=== PATIENT | female | born 2000 | race Caucasian/White ===

== ENCOUNTER 2024-11-02 02:39 | Emergency (ER) | payer BC, SELFPAY ==
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
[2024-11-02 02:47] VITALS: BP 115/78; BP 120/80; PULSE 74; PULSE 90; RESP 18; TEMP 36.8; O2SAT 100; O2SAT 99; BMI 25.8
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
--- NOTE | 2024-11-02 02:58 | PC.NURSE ---
Report to Yessica FELICIANO for continued care.
--- OUTSIDE RECORDS SUMMARY | 2024-11-02 03:40 | XMS_ITS | Clinical Summary ---
Author Organization [facility] Address [address] [place] [address] Care Team Providers Care Instrument Technician Helper Name Role Phone Balnca Villatoro MD Primary Care Provider [phone] Allergies No known active allergies Medications ibuprofen (ADVIL,MOTRIN) 600 MG tablet Take 1 (one) tablet (600 mg total) by mouth every 6 (six) hours as needed. 7 Active escitalopram oxalate (LEXAPRO) 5 MG tablet Take 3 (three) tablets (15 mg total) by mouth once daily. 3 Active tretinoin (RETIN-A) 0.025 % cream PLEASE SEE ATTACHED FOR DETAILED DIRECTIONS 3 Active WINLEVI 1 % Crea Apply to clean dry face TWICE DAILY Active albuterol (PROVENTIL HFA;VENTOLIN HFA) 90 mcg/actuation HFA inhaler as needed. Active SPRINTEC, 28, 0.25-35 mg-mcg tabletIndicatio ns:Annual physical exam Take 1 (one) tablet by mouth once daily. 84 tablet 4 5 07/22/19 26 Active Active Problems Problem Noted Date Diagnosed Date Exercise-induced asthma 05/25/2024 Mixed anxiety and depressive disorder 05/25/2024 Health care maintenance 04/18/2023 Overview (04/18/2023): ervical cancer screening: Never had one Breast cancer screening: n/a . Colon cancer screening: n/a . Bone Health:n/a Calcium/ Vitamin D supplementation:dietary Diet/Exercise: eats healthy, runs multiple times per week Seatbelts: yes Sun screen yes Vaccines: utd will all, including HPV SI/HI:denies Hx of domestic abuse: denies PCP: Dr. 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 Persistent migraine aura wit hout cerebral infarction and with status migrainosus, not intractable 07/06/2018 Immunizations Name Administration Dates Next Due DTAP 02/06/2006, 4,06/19/2002,04/21,02/18/2002 H1N1 Unspecified 06/22/2009,03/24/2009 HPV Quadrivalent 04/23/2014 HPV9 10/28/2015,04/30/2015 Hepatitis A 04/16/2012,04/10/2011 Hepatitis B 09/11/2002,01/16/2002,2001 Hib PRP (3 dose) 03/19/2003,04/21/2002, 2 IPV 02/06/2006, 4,04/21/2002,02/18 Influenza Injectable Quadrivalent PED ,03/27/2018,07/02/2017,05/15 Influenza LAIV (Nasal) 02/11/2013,2011,02/07/2011,02/14,03/19/2008 Influenza Quadrivalent (Nasal) 5,04/23/2014,02/11/2013,04/16,02/07/2011,02/14/2010 Influenza Quadrivalent Prese rvative Free (IM) 01/30/2023,04/05/2021,05/28/2020 Influenza Recombinant Lyudmila valent Injectable Preservative Free 05/28/2020 Influenza Split 03/19/2008 Influenza TIV Preservative Free (IM) 05/27/2024 Influenza Unspecified 04/22/2003,03/19/2003 MMR 02/06/2006,03/19/2003 MMRV 02/06/2006 Meningococcal Conjugate MCV4 P (Menactra) 08/12/2018,04/21/2013 PFIZER COVID-19 Vaccine (Pur ple), mRNA, LNP-S, PF, 30 mcg/0.3 mL dose 12/31/2020,11/12/2020 Pneumococcal Conjugate 12/25/2002,2002,07/22/2002,04/21 Tdap 05/27/2024,04/21/2013 Varicella 02/06/2006,12/25/2002 Social History Tobacco Use Types Packs/Day Years Used Date Smoking Tobacco: Never Smokeless Tobacco: Never Tobacco Cessation:Counseling Given: Not Answered [facility] Utilities Answer Date Recorded In the past 12 months has e [employer], gas, oil, or water [employer] threatened to shut off services in your home? No 05/27/2024 Humiliation, Afraid, Rape, and Kick questionnair e Answer Date Recorded Within the last year, have y ou been afraid of your partner or ex-partner? No 05/27/2024 Within the last year, have y ou been humiliated or emotionally abused in other ways by your partner or ex-partner? No Within the last year, have y ou been kicked, hit, slapped, or otherwise physically hurt by your partner or ex-partner? No 05/27/2024 Within the last year, have y ou been raped or forced to have any kind of sexual activity by your partner or ex-partner? No 05/27/2024 Social Connection and Isolat ion Panel [NHANES] Answer Date Recorded In a typical week, how many times do you talk on the phone with family, friends, or neighbors? More than three times a week 05/27/2024 How often do you get togethe r with friends or relatives? Twice a week 05/27/2024 How often do you attend chur ch or restorationism services? More than 4 times per year 05/27/2024 Do you belong to any clubs o r organizations such as pentecostalism groups, unions, fraternal or athletic groups, or school groups? No 05/27/2024 How often do you attend meet ings of the clubs or organizations you belong to? Never 05/27/2024 Are you , , di vorced, , never , or living with a partner? Never 05/27/2024 AUDIT-C Answer Date Recorded Q1: How often do you have a drink containing alcohol? Never 05/27/2024 Q2: How many drinks containi ng alcohol do you have on a typical day when you are drinking? Patient does not drink Q3: How often do you have si x or more drinks on one occasion? Never 05/27/2024 Overall Financial Resource Strain (CARDIA) Answe r Date Recorded How hard is it for you to pa y for the very basics like food, housing, medical care, and heating? Not hard at all 05/27/2024 PHQ-2 Answer Date Recorded Patient Health Questionnaire-2 Score for SDOH 0 05/27/2024 [facility] - Occupational Stress Questionnaire Answer Date Recorded Do you feel stress - tense, restless, nervous, or anxious, or unable to sleep at night because your mind is troubled all the time - these days? Not at all 05/27/2024 Exercise Vital Sign Answer Date Recorde d On average, how many days pe r week do you engage in moderate to strenuous exercise (like a brisk walk)? 6 days 05/27/2024 On average, how many minutes do you engage in exercise at this level? 40 min 05/27/2024 Hunger Vital Sign Answer Date Recorded Within the past 12 months, y ou worried that your food would run out before you got the money to buy more. Never true 05/27/19 25 Within the past 12 months, t he food you bought just didn't last and you didn't have money to get more. Never true 05/27/2024 PRAPARE - Transportation Answer Date Re corded In the past 12 months, has l ack of transportation kept you from medical appointments or from getting medications? No 11/2024 In the past 12 months, has l ack of transportation kept you from meetings, work, or from getting things needed for daily living? No 05/27/2024 Housing Stability Vital Sign Answer Gómez e Recorded In the last 12 months, was t here a time when you were not able to pay the mortgage or rent on time? No 05/27/2024 In the past 12 months, how m any times have you moved where you were living? 2 05/27/2024 At any time in the past 12 m [facility] were you homeless or living in a assisted (including now)? No 05/27/2024 Substance Use Answer Date Recorded Do you use marijuana, cannabis, or THC-containin g products? No 05/27/2024 Do you use medicine not pres cribed to you, or any other types of drugs (such as cocaine, heroin, fentanyl, or meth)? No Comments No Sex and Gender Information Value Date Recorded Sex Assigned at Not on file Legal Sex Female 1:28 AM EST Gender Identity Not on file Sexual Orientation Not on file Last Filed Vital Signs Vital Sign Reading Time Taken Comments Blood Pressure 118/68 07/01/2024 11:56 AM EST Pulse 87 07/01/2024 11:56 AM EST Temperature 37.1 ??C (98.7 ??F) 07/01/2024 11:[address] Respiratory Rate 18 03/21/2020 2:58 PM EST Oxygen Saturation 99% 07/01/2024 11:56 AM EST Inhaled Oxygen Concentration - - Weight 72.6 kg (160 lb) 07/01/2024 11:56 AM EST Height 167.6 cm (5' 6 ) 07/01/2024 11:56 AM EST Body Mass Index 25.82 07/01/2024 11:56 AM EST Plan of Treatment Upcoming Encounters Date Type Department Care Team (Late st Contact Info) Description 06/01/2025 10:00 AM EST Office Visit [facility], [id number] [place] [address], [address] [id number] Calos Reed PA [address] [place] [id number] Health Maintenance Due Date Last Done Comments CHLAMYDIA SCREENING 2001 MENINGOCOCCAL B VACCINE (1 of 2 - Standard) 2017 HEPATITIS C SCREENING 2018 PNEUMOCOCCAL VACCINE (1 of 2 - PCV) 2020 12/25/2002, 09/11/2002, 07/22/2002, Additional history exists COVID-19 IMMUNIZATION ( season) 2024 12/31/2020, 11/12/2020 Cervical Cancer Screening 04/18/2026 Pap Smear 04/18/2026 04/18/2023 DTAP/TDAP/TD VACCINES (8 - Td or Tdap) 05/27/2034 05/27/2024, 04/21/2013, 02/06/2006, Additional history exists ZOSTER VACCINE (1 of 2) 12/15/2051 02/07/20, 02/06/2006, 12/25/2002 RSV IMMUNIZATION (1 - 1-dose 75+ series) 2076 HEPATITIS B VACCINES Completed 09/11/2002, 01/16/2002, 2001 HIB VACCINES Completed 03/19/2003, 06/2001, 02/18/2002 IPV VACCINES Completed 02/06/2006, 05/22, 04/21/2002, Additional history exists MMR VACCINES Completed 02/06/2006, 01/19, 03/19/2003 VARICELLA VACCINES Completed 02/06/2006, 0 02/06/2006, 12/25/2002 HEPATITIS A VACCINES Completed 04/16/2012, 04/10/20 11 HPV VACCINE Completed 10/28/2015, 04/20, 04/23/2014 MENINGOCOCCAL ACYW VACCINE Completed 08/12/2018, INFLUENZA VACCINE Completed 05/27/2024, , 04/05/2021, Additional history exists ROTAVIRUS VACCINES Aged Out No longer eligible based on patient's age to complete this topic Procedures Procedure Name Priority Date/Time Associated Diagnosis Comments 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, 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[employer]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 Routine 04/18/2023 Encounter for routine gynecological examination with Papanicolaou smear of cervix from Last 3 Months or Most Recently Relevant to Health Maintenance Results * Cytology, [employer]ING (PAP) (04/18/2023) Specimen from genital system (specimen) 04/18/2023 04/20/2023 10:02 AM EST us Margot Marin NP PATHOLOGY/CYTOLOGY ORDERA BLES Final Result [facility] [address] [place] [id number] from Last 3 Months or Most Recently Relevant to Health Maintenance Insurance [employer] Care Teams Instrument Technician Helper Relationship Specialty Start Date End Date Blanca Villatoro MD PCP - General Internal Medicine 06/13/21
[2024-11-02 06:03] VITALS: BP 115/78; PULSE 74; RESP 18; TEMP 36.8; O2SAT 100
== END 2024-11-02 06:03 | disposition home or self-care (01) ==
PROVIDERS: Emergency Provider Emergency Medicine
DX: Z04.1 Encounter for examination and observation following transport accident (principal); R51.9 Headache, unspecified; M54.2 Cervicalgia; M54.6 Pain in thoracic spine
CPT/HCPCS: 70450; 72125; 99284

== ENCOUNTER → 2024-11-02 02:53 | Outpatient (BNV) | payer SELFPAY | PROVIDERS: Emergency Provider Emergency Medicine; Visit Provider Radiology Diagnostic Radiology | DX: M54.2 Cervicalgia (principal); R51.9 Headache, unspecified; V89.2XXA Person injured in unspecified motor-vehicle accident, traffic, initial encounter | CPT/HCPCS: 70450; 72125 ==